=== PATIENT | female | born 1985 | race Caucasian/White ===

== ENCOUNTER → 2021-01-02 | Day surgery (SDC) | payer OTHER ==
[~2021-01-02] VITALS: Ht 160 cm; Wt 99.8 kg
[~2021-01-02] MED LIST: AMITRIPTYLINE100 MG PO; APRI 28 DAY TA1 EACH PO; CETIRIZINE HCL10 MG PO; GABAPENTIN600 MG PO; MELOXICAM15 MG PO; PEPCID AC20 MG PO; PHENTERMINE HCL15 MG PO; RYBELSUS3 MG PO
[2021-01-02 09:13] LABS: HCG (URINE) SCREEN NEGATIVE (NEGATIVE)
[2021-01-02 09:54] LABS: BASOPHIL 0.4 % (0-2); EOSINOPHIL 1.8 % (0-5); HCT 36.3 % (37.0-47.0); HGB 11.9 g/dl (12.5-16.0); LYMPHOCYTE 33.7 % (15-48); MCHC 32.8 g/dL (32.0-36.0); MCV 91.4 fL (78.0-100.0); MONOCYTE 7.6 % (0-12); MPV 9.1 fL (6.0-9.5); NEUTROPHIL 56.3 % (41-80); NRBC 0; PLT 411 K/uL (150-400); RBC 3.97 M/uL (4.20-5.40); RDW 13.8 % (11.5-14.0); WBC 11.2 K/uL (4.0-10.5)
[2021-01-02 10:16] LABS: ALBUMIN 3.1 g/dL (3.4-5.0); BILIRUBIN - TOTAL 0.4 mg/dL (0.2-1.0); BUN/CREAT RATIO (CALC) 18.8 RATIO; CREATININE 0.64 mg/dL (0.51-0.95); GLOBULIN (CALCULATION) 4.5 g/dL; POTASSIUM 3.9 mmol/L (3.5-5.1); TOTAL PROTEIN 7.6 g/dL (6.4-8.2)
== END | disposition home or self-care (01) ==
LOC: FAS 08:07
PROVIDERS: Oral & Maxillofacial Surgery
DX: K04.7 Periapical abscess without sinus (principal); K02.9 Dental caries, unspecified; M19.90 Unspecified osteoarthritis, unspecified site; E07.9 Disorder of thyroid, unspecified; F32.9 Major depressive disorder, single episode, unspecified; E66.9 Obesity, unspecified; Z79.899 Other long term (current) drug therapy; Z88.1 Allergy status to other antibiotic agents
CPT/HCPCS: D7140; D7210; 36415; 80053; 84703; 85025; J1100; J1170; J1885; J2250; J2405; J2704; J7120